=== PATIENT | female | born 1965 | race Caucasian/White ===

== ENCOUNTER 2019-12-06 15:21 | Emergency (ER) | payer BC, OTHER ==
--- NOTE | 2019-12-06 16:18 | ER Document Report ---
ED GI Bleed / Rectal Pain - General Mode of Arrival: Ambulatory Information source: Patient - HPI Patient complains to provider of: Bright red bld from rect. Onset: Yesterday Timing/Duration: Intermittent Quality of pain: Cramping Severity of symptoms: Mild Pain Level: 2 Emesis description: Bright red blood Rectal bleeding: Bleeding w/o stool Associated symptoms: Abdominal pain Exacerbated by: Denies Relieved by: Denies Similar symptoms previously: Yes Recently seen / treated by doctor: No <MARY GOEL - Last Filed: 12/07/19 01:20> <ROMELIA ASHTON - Last Filed: 12/08/19 05:03> - General Chief Complaint: Rectal Bleeding Stated Complaint: RECTAL BLEEDING Time Seen by Provider: 12/06/19 15:41 Notes: 54-year-old female presented to ED for complaint of rectal bleeding since about 11:00 last night. She states she has had rectal bleeding one previous time about 3 years ago and they did a colonoscopy which was negative. She is from [place]. She just flew here from [place] last night. States she had some bleeding mixed with stool last night and then today she thought she was going to pass some gas and passed pure blood. He states she did have some pain earlier now she just has tenderness to palpation. Patient has had a history of elevated cholesterol gallbladder removed gallbladder pancreatitis fractured wrist depression and migraines. She states she has a family history of [place] high blood pressure high cholesterol and diabetes. Body in her family has any cancer. (MARY GOEL) Past Medical History - General Information source: Patient - Social History Smoking Status: Never Smoker Frequency of alcohol use: Occasional Drug Abuse: None Lives with: Family Family History: Reviewed & Not Pertinent Patient has suicidal ideation: No Patient has homicidal ideation: No - Past Medical History Cardiac Medical History: Reports: Hx Hypercholesterolemia Pulmonary Medical History: Reports: None EENT Medical History: Reports: None Neurological Medical History: Reports: Hx Migraine Endocrine Medical History: Reports: None Renal/ Medical History: Reports: None Malignancy Medical History: Reports: None GI Medical History: Reports: Hx Pancreatitis, Hx Colonoscopy, Hx Endoscopy Musculoskeletal Medical History: Reports Hx Musculoskeletal Trauma Skin Medical History: Reports None Psychiatric Medical History: Reports: Hx Depression Traumatic Medical History: Reports: Hx Fractures - Rest Infectious Medical History: Reports: None Past Surgical History: Reports: Hx Section, Hx Cholecystectomy - Immunizations Immunizations up to date: Yes <MARY GOEL - Last Filed: 12/07/19 01:20> Review of Systems - Review of Systems Constitutional: No symptoms reported EENT: No symptoms reported Cardiovascular: No symptoms reported Respiratory: No symptoms reported Gastrointestinal: Rectal bleeding Genitourinary: No symptoms reported Female Genitourinary: No symptoms reported Musculoskeletal: No symptoms reported Skin: No symptoms reported Hematologic/Lymphatic: No symptoms reported Neurological/Psychological: No symptoms reported -: Yes All other systems reviewed and negative <MARY GOEL - Last Filed: 12/07/19 01:20> Physical Exam - Vital signs Interpretation: Normal - General General appearance: Appears well, Alert - HEENT Head: Normocephalic, Atraumatic Eyes: Normal Pupils: PERRL - Respiratory Respiratory status: No respiratory distress Chest status: Nontender Breath sounds: Normal Chest palpation: Normal - Cardiovascular Rhythm: Regular Heart sounds: Normal auscultation Murmur: No - Abdominal Inspection: Normal Distension: No distension Bowel sounds: Normal Tenderness: Nontender Organomegaly: No organomegaly - Rectal Tenderness: No Stool: Other - Bright red blood per rectal exam Hemorrhoids: None - Back Back: Normal, Nontender - Extremities General upper extremity: Normal inspection, Nontender, Normal color, Normal ROM, Normal temperature General lower extremity: Normal inspection, Nontender, Normal color, Normal ROM, Normal temperature, Normal weight bearing. No: Marlen's sign - Neurological Neuro grossly intact: Yes Cognition: Normal Orientation: AAOx4 [place] Coma Scale Eye Opening: Spontaneous [place] Coma Scale Verbal: Oriented Markie Coma Scale Motor: Obeys Commands Markie Coma Scale Total: 15 Speech: Normal Motor strength normal: LUE, RUE, LLE, RLE Sensory: Normal - Psychological Associated symptoms: Normal affect, Normal mood - Skin Skin Temperature: Warm Skin Moisture: Dry Skin Color: Normal <MARY GOEL - Last Filed: 12/07/19 01:20> - Vital signs Vitals: Temp Pulse Resp BP Pulse Ox 98.5 F 83 16 161/98 H 99 12/06/19 15:22 12/06/19 15:22 12/06/19 15:22 12/06/19 15:22 12/06/19 15:22 Course - Laboratory Result Diagrams: 12/06/19 16:17 12/06/19 16:17 - Diagnostic Test Radiology reviewed: Image reviewed, Reports reviewed <RD GOELQUELINE - Last Filed: 12/07/19 01:20> - Laboratory Result Diagrams: 12/06/19 16:17 12/06/19 16:17 <ROMELIA ASHTON - Last Filed: 12/08/19 05:03> - Re-evaluation Re-evalutation: 12/06/19 18:41 Reviewed lab and ultrasound with patient written report of labs and ultrasound given to patient. She does have a live intrauterine at 13 weeks 0 days. With a heart tone of 160. Patient states she does have an appointment with [facility] in the morning. She will take a copy of her labs and ultrasound with her to this appointment. She states she is not having any pain or discomfort at this time. 12/06/19 18:42 The above was charted on the wrong chart this patient does not have an intraute rine . She is here for rectal bleeding. 12/06/19 22:57 20:00 patient was accepted for transfer to [facility] after calling [facility] and they stated they did not have a bed for a coronavirus rule out patient. This patient does have a rectal bleed. I did get an accepting doctor of gastroenterology for this patient. Her vital signs have been stable at the time that she came and at the time that I got a excepting back. Patient states she has had 5 episodes of bloody drainage from her rectum. She states she has not actually had any stool except for 1 liquid stool this morning. She states she did have an episode of bloody stools 3 years ago and had a normal negative colonoscopy and has not had any further rectal bleeding since then until now. I did consult Dr. Ashton's who stated that the patient definitely needed to be transferred. Patient was insistent she wanted to go by private vehicle. Both Dr. Ashton and the receiving hospital stated that she would need to go by EMS or she would need to be discharged AGAINST MEDICAL ADVICE and go to [facility] and [place] all over. She did agree for the transport to the hospital. 12/06/19 23:01 Patient states she is resting quietly. She states she has not had any bloody stools since 2100 tonight. She states she is not having any pain or discomfort. She states she is just waiting for her transport to [facility]. (MARY GOEL) 12/06/19 04:08 Patient presents with lower G.I. bleed, apparently multiple episodes of bright red blood per rectum while emergency. Given that there is no Medical Technologist Hematology section gang worker [facility], patient will require transfer to outside hospital. Advised mid-level provider to transfer the patient . The discussion arose regarding possible transfer by private vehicle. I've advised against transfer by private vehichle, The risk of further bleeding and instability and EMTALA which requires the safest transportof the patient. Patient was apparently accepted at [facility]. Patient has agreed to be transported via EMS. (ROMELIA ASHTON) - Vital Signs Vital signs: Temp Pulse Resp BP Pulse Ox 97.8 F 74 14 162/86 H 97 12/06/19 23:18 12/06/19 23:18 12/06/19 23:18 12/06/19 23:18 12/06/19 23:18 - Laboratory Laboratory results interpreted by me: 12/06/19 12/06/19 12/06/19 16:17 16:17 16:30 WBC 11.4 H Glucose 118 H Leukocyte Esterase Rfl TRACE H Urine Ascorbic Acid 20 H Discharge <MARY GOEL - Last Filed: 12/07/19 01:20> <ROMELIA ASHTON - Last Filed: 12/08/19 05:03> - Discharge Clinical Impression: Rectal bleeding Condition: Stable Disposition: [facility]
[2019-12-06 16:45] LABS: ABSOLUTE BASOPHILS # (AUTO) 0.1 10^3/uL (0.0-0.2); ABSOLUTE EOSINOPHILS # (AUTO) 0.2 10^3/uL (0.0-0.6); ABSOLUTE LYMPHOCYTES (AUTO) 3.3 10^3/uL (0.5-4.7); ABSOLUTE MONOCYTES (AUTO) 1.1 10^3/uL (0.1-1.4); ABSOLUTE NEUT (AUTO) 6.7 10^3/uL (1.7-8.2); BASOPHILS % (AUTO) 0.4 % (0-2); EOSINOPHILS % (AUTO) 1.6 % (0-6); HEMATOCRIT 42.4 % (36.0-47.0); HEMOGLOBIN 14.6 g/dL (12.0-15.5); LYMPHOCYTES % (AUTO) 29.3 % (13-45); MEAN CORPUSCULAR HEMOGLOBIN 30.3 pg (27.0-33.4); MEAN CORPUSCULAR HGB CONC 34.3 g/dL (32.0-36.0); MEAN CORPUSCULAR VOLUME 88 fl (80-97); MONOCYTES % (AUTO) 9.3 % (3-13); PLATELET COUNT 285 10^3/uL (150-450); RED CELL DISTRIBUTION WIDTH 13.4 % (11.5-14.0); SEGMENTED NEUTROPHILS % (AUTO) 59.4 % (42-78); TOTAL CELLS COUNTED % (AUTO) 100 %; WHITE BLOOD COUNT 11.4 10^3/uL (4.0-10.5)
[2019-12-06 17:05] LABS: ALBUMIN 4.4 g/dL (3.5-5.0); ALKALINE PHOSPHATASE 79 U/L (38-126); ANION GAP 10 (5-19); ASPARTATE AMINO TRANSFERASE 27 U/L (14-36); BILIRUBIN,TOTAL 0.5 mg/dL (0.2-1.3); BLOOD UREA NITROGEN 15 mg/dL (7-20); CALCIUM 9.4 mg/dL (8.4-10.2); CARBON DIOXIDE 25 mmol/L (22-30); CHLORIDE 105 mmol/L (98-107); GLUCOSE 118 mg/dL (75-110); POTASSIUM 3.7 mmol/L (3.6-5.0); TOTAL PROTEIN 7.1 g/dL (6.3-8.2)
[2019-12-06 18:27] LABS: APPEARANCE,URINE SLIGHTLY-CLOUDY; BILIRUBIN,URINE NEGATIVE (NEGATIVE); CALCIUM OXALATE CRYSTALS,URINE MANY /HPF; COLOR,URINE YELLOW; GLUCOSE, URINE NEGATIVE (NEGATIVE); KETONES,URINE NEGATIVE (NEGATIVE); PROTEIN,URINE NEGATIVE (NEGATIVE); URINE SPECIFIC GRAVITY 1.027; UROBILINOGEN,URINE NEGATIVE mg/dL (<2.0)
[2019-12-06 22:20] VITALS: BP 162/86
== END 2019-12-06 23:00 | disposition short-term general hospital (02) ==
LOC: ER 15:21
DX: K62.5 Hemorrhage of anus and rectum (principal); E78.00 Pure hypercholesterolemia, unspecified; Z90.49 Acquired absence of other specified parts of digestive tract
CPT/HCPCS: 36415; 80053; 81001; 82270; 83690; 84703; 85025; 86850; 86900; 86901; 99284